=== PATIENT | female | born 1990 | race Caucasian/White ===

== ENCOUNTER 2016-08-12 13:41 | Emergency (ER) | payer OTHER ==
--- NOTE | 2016-08-12 14:06 | ED NURSING NOTES ---
Clinical Report - Nurses Located Within [facility] [address] [place] [address] 08/12/2016 13:41 Patient: LAUREN June TRIAGE Triage time 1345. Acuity: LEVEL 5. Chief Complaint: (pt in for packing removal from I&D site done Saturday night to right AC). --13:52 Eliza Noel R.N. 13:45 08/12/16. BP: 134/77. HR: 88. RR: 16. O2 saturation: 100%. Temp: 98.9 F. Pain level now: 04/10. --13:52 Eliza Noel R.N. Weight: 97.5 kg stated. Height/Length: 66 inches Per Patient. BMI: 34.7. --13:50 Eliza Noel R.N. Medications Bactrim Oral 1 tablet, 2x a day. --14:21 Eliza Noel R.N. Ibuprofen Oral 600 mg, PRN. --14:21 Eliza Noel R.N. The following entry was struck and corrected by Eliza Noel R.N., 14:21 (08/12/16) Reason for correction - other(correction). <<STRICKEN ENTRY-- Bactrim Oral. --14:21 Eliza Noel R.N. --END STRIKE>>. Allergies No Known Drug Allergy. --14:21 Eliza Noel R.N. History Arrived by private vehicle. Historian: patient. Unaccompanied. No primary care physician. Previous treatment: Previously seen in this ED two days ago. Incision and drainage of abscess performed. Antibiotic given in ED. Prescription given. (Bactrim). PAST MEDICAL HX: Last normal menstrual period- IUD. SOCIAL HX: Light tobacco smoker (cigarette)- less than 1/2 a pack per day. History of drug use: heroin. No alcohol use. --13:52 Bert, Eliza, R.N. PROBLEMS: Lifestyle / Substance Problems. Abscess. --13:49 Eliza Noel R.N. ADDITIONAL SURGERIES: Tonsillectomy. --13:49 Eliza Noel R.N. Interventions ID band on patient. To treatment room. --13:52 Eliza Noel R.N. PHYSICAL ASSESSMENT 13:45. Ambulatory to room. Patient gowned. GENERAL / NEURO / PSYCH: Alert. Oriented X 4. Appears in no acute distress. Patient's nutrition appears within normal limits. EXTREMITIES: Extremity pulses are within normal limits. Capillary refill is less than 2 seconds in the extremities. Sensation intact in extremities. ROM of extremities within normal limits. SKIN: Skin is warm and dry. --13:53 Eliza Noel R.N. NURSING PROGRESS NOTES 13:45. Patient gowned. Reassurance given. Patient identifiers checked. Call light placed in reach. Side rails up. Bed placed in lowest position. Patient ready for evaluation- chart flagged. --13:53 Eliza Noel R.N. 13:55. ( packing removed by JAA, new packing placed at site.). --14:22 Eliza Noel R.N. 14:10. Applied clean dressing consisting of gauze. Secured with tape, zully bandage and kerlix. --14:23 Eliza Noel R.N. DISPOSITION / DISCHARGE 14:15. Condition at departure: unchanged and stable. No learning barriers present. Discharge instructions provided and reviewed with the patient. Reviewed medication(s) (continue bactrim and motrin). Patient verbalized understanding. Written instructions provided in Albanian. The patient was discharged home and unaccompanied at time of discharge. She left the Emergency Department ambulatory and via private vehicle. Patient driving. --14:24 Eliza Noel R.N. 14:15 08/12/16. BP: deferred. HR: deferred. RR: deferred. O2 saturation: deferred. Temp: deferred. Pain level now: 04/10. --14:24 Eliza Noel R.N. Locked/Released at 08/12/2016 14:35 by Eliza Noel R.N.
--- NOTE | 2016-08-12 14:06 | ED CLINICAL REPORT ---
Clinical Report - Physicians/Mid Levels [facility] [address] [place] [address] 08/12/2016 13:41 Patient: ALEYDA AGUILAR Time Seen: 13:59 Aug 12 2016. Arrived- By private vehicle. Historian- patient. HISTORY OF PRESENT ILLNESS Chief Complaint: SKIN RASH. This started 4 days and is still present. It is described as painful. It has been located on the right upper extremity. A possible cause has been identified. (Improvement of abscesses, decreased drainage. Denies fevers or chills. Reports improvement.). Recent medical care: The patient was seen recently in the emergency department. REVIEW OF SYSTEMS No fever, sore throat, difficulty breathing, hoarseness or chest pain. All systems otherwise negative, except as recorded above. PAST HISTORY Tetanus immunization status is up-to-date. SOCIAL HISTORY History of heavy IV drug use: heroin. ADDITIONAL NOTES The nursing notes have been reviewed. PHYSICAL EXAM Vital Signs: 08/12/2016 13:45 BP: 134/77. HR: 88. RR: 16. O2 saturation: 100%. Temp: 98.9 F. Pain level now: 110. Appearance: Alert. ENT: Ears normal. Nose normal. CVS: Normal heart rate and rhythm. Heart sounds normal. Respiratory: No respiratory distress. Breath sounds normal. Skin: Skin warm. Erythema. Single small tender indurated area (r. elbow (anticubital)). Cellulitis. Neuro: Oriented X 3. PROGRESS AND PROCEDURES PROCEDURES (1/4 inch packing removed, and new placed.). Course of Care: 08/10 I/d in ER culture +MRSA, sensitive to bactrim. Patient afebrile no distress for range of motion, no lymphadenopathy. Patient very stable. Coronary and packing placed into right antecubital. Patient urged to do warm packs and to remove packing in 2-3 days at home. Patient is stable. Symptoms better. Patient/family counseled. Disposition: Discharged. CLINICAL IMPRESSION Single deep abscess to the right upper extremity (Old with prior I/D). INSTRUCTIONS (continue taking your meds warm packs remove in shower in 2-3 days). (Electronically signed by Kalyn Fonseca P.A.-C 08/12/2016 14:16)
--- NOTE | 2016-08-12 14:06 | ED CLINICAL REPORT ---
Clinical Report - Physicians/Mid Levels [facility] [address] [place] [address] 08/12/2016 13:41 Patient: ALEYDA AGUILAR Time Seen: 13:59 Aug 12 2016. Arrived- By private vehicle. Historian- patient. HISTORY OF PRESENT ILLNESS Chief Complaint: SKIN RASH. This started 4 days and is still present. It is described as painful. It has been located on the right upper extremity. A possible cause has been identified. (Improvement of abscesses, decreased drainage. Denies fevers or chills. Reports improvement.). Recent medical care: The patient was seen recently in the emergency department. REVIEW OF SYSTEMS No fever, sore throat, difficulty breathing, hoarseness or chest pain. All systems otherwise negative, except as recorded above. PAST HISTORY Tetanus immunization status is up-to-date. SOCIAL HISTORY History of heavy IV drug use: heroin. ADDITIONAL NOTES The nursing notes have been reviewed. PHYSICAL EXAM Vital Signs: 08/12/2016 13:45 BP: 134/77. HR: 88. RR: 16. O2 saturation: 100%. Temp: 98.9 F. Pain level now: 110. Appearance: Alert. ENT: Ears normal. Nose normal. CVS: Normal heart rate and rhythm. Heart sounds normal. Respiratory: No respiratory distress. Breath sounds normal. Skin: Skin warm. Erythema. Single small tender indurated area (r. elbow (anticubital)). Cellulitis. Neuro: Oriented X 3. PROGRESS AND PROCEDURES PROCEDURES (1/4 inch packing removed, and new placed.). Course of Care: 08/10 I/d in ER culture +MRSA, sensitive to bactrim. Patient afebrile no distress for range of motion, no lymphadenopathy. Patient very stable. Coronary and packing placed into right antecubital. Patient urged to do warm packs and to remove packing in 2-3 days at home. Patient is stable. Symptoms better. Patient/family counseled. Disposition: Discharged. CLINICAL IMPRESSION Single deep abscess to the right upper extremity (Old with prior I/D). INSTRUCTIONS (continue taking your meds warm packs remove in shower in 2-3 days). (Electronically signed by Kalyn Fonseca P.A.-C 08/12/2016 14:16)
--- NOTE | 2016-08-12 14:35 | ED DISCHARGE INSTRUCTIONS ---
Patient: LAUREN June General Instructions [facility] VisitID: [id number] [place] [address] 26y, F Registration Date/Time: 08/12/2016 Single deep abscess to the right upper extremity (Old with prior I/D). INSTRUCTIONS (continue taking your meds warm packs remove in shower in 2-3 days). ADDITIONAL INFORMATION Abscess [Incision & Drainage] An abscess (sometimes called a boil) occurs when bacteria get trapped under the skin and begin to grow. Pus forms inside the abscess as the body responds to the bacteria. An abscess can occur with an insect bite, ingrown hair, blocked oil gland, pimple, cyst, or puncture wound. Treatment of your abscess has required an incision to drain the pus. If the abscess pocket was large, a gauze packing may have been inserted. This will need to be removed and possibly replaced on your next visit. Antibiotics are not required in the treatment of a simple abscess, unless the infection is spreading into the skin around the wound (known as cellulitis). Healing of the wound will take about one to two weeks depending on the size of the abscess. Healthy tissue will grow from the bottom and sides of the opening until it seals over. Home Care: The wound may drain for the first two days. Cover the wound with a clean dry dressing. If the dressing becomes soaked with blood or pus, change it. If a gauze packing was placed inside the abscess cavity, you may be advised to remove it yourself. You may do this in the shower. Once the packing is removed, you should wash the area in the shower or bath 3 to 4 times a day, until the skin opening has closed. If you were prescribed antibiotics, take them as directed until they are all gone. You may use acetaminophen (Tylenol) or ibuprofen (Motrin, Advil) to control pain, unless another pain medicine was prescribed. [ NOTE: If you have liver disease or ever had a stomach ulcer, talk with your doctor before using these medicines.] Follow Up with your doctor as advised by our staff. If a gauze packing was inserted in your wound, it should be removed in 1-2 days. Check your wound every day for the signs of worsening infection listed below. Get Prompt Medical Attention if any of the following occur: Increasing redness or swelling Red streaks in the skin leading away from the wound Increasing local pain or swelling Continued pus draining from the wound two days after treatment Fever of 100.4F (38C) or higher, or as directed by your healthcare provider Staph Infection (MRSA) "Staph" is the short name for the common bacteria called "staphylococcus aureus". Staph bacteria are often present on the skin without causing an infection. If it gets under the skin an infection occurs. This causes redness, tenderness, swelling and sometimes fluid drainage. MRSA stands for "Methicillin-Resistant Staph Aureus". Unlike a common staph infection, MRSA bacteria are resistant to the usual antibiotics and harder to treat. Also, MRSA is more toxic than common staph bacteria. It can spread quickly throughout the body and cause a life-threatening illness. MRSA is spread to others by direct physical contact with the bacteria. MRSA can also be transmitted from items contaminated by a person who has the bacteria, such as bandages, towels, bed sheets, or sports equipment. It is not spread through the air. Once you have a MRSA skin infection, you are at risk of having it recur in the future. If MRSA infection is suspected, the doctor may take a wound culture to confirm the diagnosis. Any abscess will be drained. One or sometimes two antibiotics that work against MRSA will be prescribed. Home Care: 1) Take any antibiotics prescribed exactly as directed until they are gone. 2) Follow the same washing procedures as outlined for Household Members below. 3) Keep draining wounds covered with clean, dry bandages. Change dressings as they become soiled. 4) You and those in contact with you should wash their hands frequently with soap and warm water or use an alcohol-based hand exchange mechanic. Do this after each time you change the bandage or touch the wound. 5) Avoid sharing personal items such as towels, washcloths, razors, clothing, or uniforms. Wash soiled sheets, towels or clothes in hot water with laundry detergent. Use an automatic clothes dryer set on high to kill any remaining bacteria. 6) Remove any artificial nails and nail senegalese. 7) If you use a gym, wipe down equipment before and after each use. Treatment Of Household Members If you have been diagnosed with possible MRSA infection, those living with you are at higher risk of carrying the bacteria on their skin or in their nose, even if there is no sign of infection. Bacteria must be removed from the skin of all household members (including you) at the same time, so that it is not passed back and forth. Advise them to remove the bacteria as follows: Wash your whole body (scalp to toes) daily for five days with Hibiclens (chlorhexidine). Scrub fingernails with a brush for one minute twice a day. If any skin infections are present (boils, abscess, infected cut) these must be treated by a doctor. Washing alone will not treat a MRSA infection. Clean counter tops and children's toys; do not share personal items such as toothbrush and razors. It is okay to share glasses, plates, utensils. If antibiotic ointment was prescribed use it as directed. Follow Up with your doctor or as advised by our staff. If a wound culture was taken, call as directed in two days to obtain the results. If the culture result is positive for MRSA, tell medical personnel in the future that you were treated for this type of infection. Get Prompt Medical Attention if any of the following occur: -- Increasing redness, swelling or pain -- Red streaks in the skin around the wound -- Weakness or dizziness -- New appearance of pus or drainage from the wound -- New fever over 100.4 F (38.0 C) You have been given the following additional information: Abscess, Incision And Drainage MRSA Skin Infection, Suspected Or Confirmed (Electronically signed by Kalyn Fonseca P.A.-C 08/12/2016 14:16)
--- NOTE | 2016-08-12 14:35 | ED MAR SUMMARY ---
..... Medication Administration Record [facility] [address] [place] [address] Patient: LAUREN June Visit ID: [id number] 26y, F Weight: 97.5 kg Height/Length: 66 in BMI: 34.7 ALLERGIES: No Known Drug Allergy
--- NOTE | 2016-08-12 14:35 | ED MAR SUMMARY ---
..... Medication Administration Record [facility] [address] [place] [address] Patient: LAUREN June Visit ID: [id number] 26y, F Weight: 97.5 kg Height/Length: 66 in BMI: 34.7 ALLERGIES: No Known Drug Allergy
--- NOTE | 2016-08-12 14:35 | ED MED RECONCILIATION SUMMARY ---
Patient: LAURENJune Medication Reconciliation Report [facility] VisitID: [id number] [address] [place] [address] 26y, F Registration Date/Time: 08/12/2016 Weight: 97.5 kg Height/Length: 66 in. BMI: 34.7 ALLERGIES: No Known Drug Allergy The patient's Home Medications are listed below: THE FOLLOWING MEDICATIONS NEED TO BE RECONCILED: Bactrim Oral 1 tablet, 2x a day Ibuprofen Oral 600 mg, PRN The source(s) of the original Home Medication information: Not obtained. The following Medications were given to the patient in the Emergency Department: None. The following Medications were prescribed to the patient: None.
--- NOTE | 2016-08-12 14:35 | ED MED RECONCILIATION SUMMARY ---
Patient: LAURENJune Medication Reconciliation Report [facility] VisitID: [id number] [address] [place] [address] 26y, F Registration Date/Time: 08/12/2016 Weight: 97.5 kg Height/Length: 66 in. BMI: 34.7 ALLERGIES: No Known Drug Allergy The patient's Home Medications are listed below: THE FOLLOWING MEDICATIONS NEED TO BE RECONCILED: Bactrim Oral 1 tablet, 2x a day Ibuprofen Oral 600 mg, PRN The source(s) of the original Home Medication information: Not obtained. The following Medications were given to the patient in the Emergency Department: None. The following Medications were prescribed to the patient: None.
== END 2016-08-12 14:18 | disposition home or self-care (01) ==
LOC: ED SRH 13:41
DX: L02.413 Cutaneous abscess of right upper limb (principal); B95.62 Methicillin resistant Staphylococcus aureus infection as the cause of diseases classified elsewhere